=== PATIENT | male | born 1985 ===

== ENCOUNTER 2017-07-01 13:08 | Emergency (ER) | payer OTHER ==
[2017-07-01 13:14] VITALS: O2SAT 100
[2017-07-01] MEDS ORDERED: Sodium Chloride 0.9% 1,000 ML IV STA (13:43)
--- NOTE | 2017-07-01 13:51 | ED PDOC ---
HPI: Male Pain Time Seen by Provider: 07/01/17 13:39 Chief Complaint (Nursing): Male Genitourinary Chief Complaint (Provider): Male Genitourinary, Fever History Per: Patient History/Exam Limitations: no limitations Onset/Duration Of Symptoms: Days (x2) Current Symptoms Are (Timing): Still Present Additional Complaint(s): Chadd Bennett is a 32 year old male with no past medical history who presents to the ED complaining of dysuria x1 day. Patient states he had a fever of 102 yesterday and this morning urination was accompanied with a burning sensation. Also states he had left sided back pain yesterday which resolved sometime after taking Tylenol this morning. Denies coughing, abdominal pain, and vomiting. PMD: No PMD Past Medical History Reviewed: Historical Data, Nursing Documentation, Vital Signs Vital Signs: Last Vital Signs Temp 99.9 F H 07/01/17 13:12 Pulse 93 H 07/01/17 13:12 Resp 16 07/01/17 13:12 BP 131/81 07/01/17 13:12 Pulse Ox 100 07/01/17 13:12 - Family History Family History: States: Unknown Family Hx - Home Medications Home Medications: Ambulatory Orders Medication Instructions Recorded Ciprofloxacin HCl [Cipro] 500 mg PO BID #14 tablet 07/01/17 - Allergies Allergies/Adverse Reactions: Allergies Allergy/AdvReac Type Severity Reaction Status Date / Time acetaminophen Allergy RASH Verified 07/01/17 13:15 naproxen [From Aleve] Allergy RASH Verified 07/01/17 13:12 Review of Systems ROS Statement: Except As Marked, All Systems Reviewed And Found Negative Constitutional: Positive for: Fever (102, yesterday) Respiratory: Negative for: Cough Gastrointestinal: Negative for: Vomiting, Abdominal Pain Genitourinary Male: Positive for: Dysuria (Burning) Physical Exam - Reviewed Nursing Documentation Reviewed: Yes Vital Signs Reviewed: Yes - Physical Exam Appears: Positive for: Well, Non-toxic, No Acute Distress Head Exam: Positive for: ATRAUMATIC, NORMAL INSPECTION, NORMOCEPHALIC Skin: Positive for: Normal Color. Negative for: Rash Eye Exam: Positive for: Normal appearance Gastrointestinal/Abdominal: Positive for: Normal Exam, Bowel Sounds, Soft. Negative for: Tenderness, Guarding, Rebound Back: Positive for: Normal Inspection. Negative for: L CVA Tenderness, R CVA Tenderness, Vertebral Tenderness Neurologic/Psych: Positive for: Alert, Oriented - Laboratory Results Result Diagrams: 07/01/17 14:09 07/01/17 14:09 - ECG O2 Sat by Pulse Oximetry: 100 (RA) Pulse Ox Interpretation: Normal Medical Decision Making Medical Decision Making: Time: 13:42 Initial Impression: Febrile illness Plan: --CMP --ED urine dipstick --CBC w/ differential --Chlamydia/GC RNA, TMA --Sodium Chloride 0.9% 1,000 ml IV --Urine Culture --Influenza A B --Urinalysis --Reevaluation Time: 16:01 --Upon provider evaluation patient is medically stable, and requires no further treatment in the ED at this time. Patient will be discharged home with Rx for Cipro. Counseling was provided and all questions were answered regarding diagnosis and need for follow up with Urologist. There is agreement to discharge plan. Return if symptoms persist or worsen. Scribe Attestation: Documented by Ranulfo López, acting as a scribe for Reynaldo Iraheta PA-C Provider Scribe Attestation: All medical record entries made by the Scribe were at my direction and personally dictated by me. I have reviewed the chart and agree that the record accurately reflects my personal performance of the history, physical exam, medical decision making, and the department course for this patient. I have also personally directed, reviewed, and agree with the discharge instructions and disposition. Disposition - Clinical Impression Clinical Impression: Urinary tract infection - Patient ED Disposition Is Patient to be Admitted: No Counseled Patient/Family Regarding: Studies Performed, Diagnosis, Need For Followup, Rx Given - Disposition Referrals: Demetrio Winters Jr., MD [Staff Provider] - Disposition: Routine/Home Disposition Time: 16:01 Condition: FAIR Prescriptions: Ciprofloxacin HCl [Cipro] 500 mg PO BID #14 tablet Instructions: Urinary Tract Infection in Men (DC) Forms: [facility] (Australian), [facility] ED School/Work Excuse
[2017-07-01 14:17] LABS: BASO % 0.1 % (0.0-2.0); EOS % 0.1 % (0.0-4.0); HEMATOCRIT 46.2 % (35.0-51.0); LYMPH # 1.2 K/uL (1.0-4.3); LYMPH % 9.9 % (20.0-40.0); MEAN CELL VOLUME 87.6 fl (80.0-94.0); MEAN CORPUSCULAR HGB CONC 34.2 g/dL (33.0-37.0); MEAN PLATELET VOLUME 7.3 fl (7.2-11.7); MONO # 1.2 K/uL (0.0-0.8); MONO % 10.4 % (0.0-10.0); NEUT # 9.4 K/uL (1.8-7.0); NEUT % 79.5 % (50.0-75.0); NRBC % 0.5 % (0.0-0.0); PLATELET COUNT 191 K/uL (130-400); RED CELL DISTRIBUTION WIDTH 12.2 % (11.5-14.5); WHITE BLOOD COUNT 11.9 K/uL (4.8-10.8)
[2017-07-01 14:22] LABS: URINE BILIRUBIN NEGATIVE (NEGATIVE); URINE BLOOD SMALL (NEGATIVE); URINE COLOR YELLOW (YELLOW); URINE GLUCOSE (UA) 50 mg/dL (Normal); URINE KETONE 20 mg/dL (NEGATIVE); URINE LEUKOCYTE ESTERASE LARGE Leu/uL (Negative); URINE PROTEIN 30 mg/dL (NEGATIVE); URINE UROBILINOGEN 0.2-1.0 mg/dL (0.2-1.0); WBC URINE 43 /hpf (0-5)
[2017-07-01 14:27] LABS: ALB/GLOB RATIO 1.3 (1.0-2.1); ALKALINE PHOSPHATASE 73 U/L (38-126); ALT/SGPT 41 U/L (21-72); AST/SGOT 30 U/L (17-59); BLOOD UREA NITROGEN 12 mg/dl (9-20); CALCIUM 9.2 mg/dL (8.4-10.2); CARBON DIOXIDE 29 mmol/L (22-30); CHLORIDE 96 mmol/L (98-107); GFR AFRICAN-AMERICAN > 60; GLUCOSE,RANDOM 179 mg/dL (75-110); POTASSIUM 3.7 MMOL/L (3.6-5.0); SODIUM 137 mmol/l (132-148); TOTAL PROTEIN 8.5 G/DL (6.3-8.2)
[2017-07-01 14:35] LABS: RBC URINE 10 /hpf (0-3); URINE BACTERIA RARE (<OCC)
[2017-07-01 14:56] LABS: EOSINOPHIL 1 % (0-7); NEUTROPHIL 85 % (42-75); TOTAL CELLS COUNTED 100
[2017-07-01] MEDS ORDERED: cefTRIAXone (Rocephin) 1 gm Inj IVPB ONE (15:09)
[2017-07-01] MEDS ORDERED: cefTRIAXone IV 1 gm in Dextros 50 ML IVPB ONE ×2 (15:30→15:36)
[2017-07-01 16:12] VITALS: BP 121/72; PULSE 67; RESP 18; TEMP 99
== END 2017-07-01 16:14 | disposition home or self-care (01) ==
LOC: H.ER 13:08
DX: N39.0 Urinary tract infection, site not specified (principal)
CPT/HCPCS: 80053; 81003; 85025; 87086; 87491; 87591; 87804; 96374; 99282; J0696; J7040

== ENCOUNTER 2018-11-12 12:58 | Emergency (ER) | payer OTHER ==
[2018-11-12 13:08] VITALS: TEMP 97.1; O2SAT 100
--- NOTE | 2018-11-12 14:20 | ED PDOC ---
HPI: Abdomen Time Seen by Provider: 11/12/18 14:01 Chief Complaint (Nursing): Abdominal Pain Additional History Per: Patient Additional Complaint(s): 33 y/o male with PMH of diet control DM-II comes to the Er for 4 days hx of mid abdominal pain. Patient reports pain radiates to his back, comes and goes, 6/10, sharp in nature, gets worse with movement, not associated with any food. Denies any associated fever, nausea, vomiting, diarrhea or dysuria. PMH: DM-II PSH: Denies Allg:Tylenol and naproxen Sh: Social alcohol FH: heart diseaase Past Medical History Vital Signs: Last Vital Signs Temp 97.1 F L 11/12/18 13:06 Pulse 68 11/12/18 13:06 Resp 16 11/12/18 13:06 BP 105/70 11/12/18 13:06 Pulse Ox 100 11/12/18 13:06 - Family History Family History: States: Unknown Family Hx - Immunization History Hx Tetanus Toxoid Vaccination: No Hx Influenza Vaccination: No Hx Pneumococcal Vaccination: No - Home Medications Home Medications: Ambulatory Orders Medication Instructions Recorded Ciprofloxacin HCl [Cipro] 500 mg PO BID #14 tablet 07/01/17 Docusate Sodium [Colace] 100 mg PO DAILY #30 capsule 11/12/18 - Allergies Allergies/Adverse Reactions: Allergies Allergy/AdvReac Type Severity Reaction Status Date / Time acetaminophen Allergy RASH Verified 11/12/18 13:06 naproxen [From Aleve] Allergy RASH Verified 11/12/18 13:06 Review of Systems Constitutional: Negative for: Fever, Chills, Sweats Eyes: Negative for: Pain, Vision Change, Conjunctivae Inflammation ENT: Negative for: Ear Pain, Ear Discharge, Nose Pain Cardiovascular: Negative for: Chest Pain, Palpitations, Orthopnea, Paroxysmal Noc. Dyspnea Respiratory: Negative for: Cough, Shortness of Breath, Hemoptysis Gastrointestinal: Positive for: Abdominal Pain. Negative for: Nausea, Vomiting, Diarrhea, Constipation, Melena, Hematochezia, Hematemesis Genitourinary Male: Negative for: Dysuria, Frequency, Incontinence Musculoskeletal: Negative for: Neck Pain Skin: Negative for: Rash Neurological: Negative for: Weakness Psych: Negative for: Anxiety Physical Exam - Physical Exam Appears: Positive for: No Acute Distress Head Exam: Positive for: ATRAUMATIC, NORMAL INSPECTION, NORMOCEPHALIC Skin: Positive for: Normal Color Eye Exam: Positive for: Normal appearance, EOMI, PERRL ENT: Positive for: Normal ENT Inspection Neck: Positive for: Normal Cardiovascular/Chest: Positive for: Regular Rate, Rhythm Respiratory: Positive for: Normal Breath Sounds. Negative for: Decreased Breath Sounds, Accessory Muscle Use, Crackles, Wheezing Gastrointestinal/Abdominal: Positive for: Bowel Sounds (present ), Soft, Tenderness (RLQ). Negative for: Distended, Guarding, Rebound Back: Positive for: Normal Inspection. Negative for: L CVA Tenderness, R CVA Tenderness Extremity: Positive for: Normal ROM. Negative for: Tenderness, Pedal Edema Neurological/Psych: Positive for: Awake, Alert, Normal Tone, centrifugal spinner II-XII - Laboratory Results Result Diagrams: 11/12/18 15:00 11/12/18 14:53 - ECG O2 Sat by Pulse Oximetry: 100 - Progress ED Course And Treament: A/P: 33 y/o male with PMH of diet control DM-II comes to the Er for 4 days hx of mid abdominal pain. - CBC - CMP - UA - Maalox - Pepcid - Lidocaine 10mg PO - Reevaluation Case discussed with Dr. Vizcarra CBC/CMP and UA reviewed: no significant abnormality RE-evaluation: No improved pain Will get CT Medical Decision Making Medical Decision Making: Constipation/RLQ pain Disposition - Clinical Impression Clinical Impression: Abdominal pain, Constipation - Patient ED Disposition Is Patient to be Admitted: No - Disposition Referrals: [facility] [Provider Group] Disposition: Routine/Home Disposition Time: 17:56 Condition: STABLE Additional Instructions: F/u PMD in 2-3 days Return to ER if symptoms get worse of no improvement in 2-3 days Prescriptions: Docusate Sodium [Colace] 100 mg PO DAILY #30 capsule Instructions: Constipation in Adults, Colic (DC) Forms: [employer] (Estonian) Print Language: COMORAN
[2018-11-12] MEDS ORDERED: Alum-Mag Hydrox-Simethicone Susp (30 mL) PO ONE (14:24)
[2018-11-12 15:12] LABS: BASO % 0.8 % (0.0-2.0); EOS # 0.2 K/uL (0.0-0.7); EOS % 3.5 % (0.0-4.0); HEMOGLOBIN 15.3 g/dL (12.0-18.0); LYMPH % 20.4 % (20.0-40.0); MEAN CELL VOLUME 90.8 fl (80.0-94.0); MEAN CORPUSCULAR HEMOGLOBIN 30.2 pg (27.0-31.0); MEAN CORPUSCULAR HGB CONC 33.3 g/dL (33.0-37.0); MONO # 0.3 K/uL (0.0-0.8); MONO % 6.9 % (0.0-10.0); NEUT # 3.2 K/uL (1.8-7.0); NEUT % 68.4 % (50.0-75.0); NRBC % 0.1 % (0.0-0.0); RBC 5.06 Mil/uL (4.40-5.90); RED CELL DISTRIBUTION WIDTH 12.9 % (11.5-14.5); WHITE BLOOD COUNT 4.7 K/uL (4.8-10.8)
[2018-11-12 15:24] LABS: URINE BACTERIA RARE (<OCC); URINE BILIRUBIN NEGATIVE (NEGATIVE); URINE BLOOD NEGATIVE (NEGATIVE); URINE CLARITY SLIGHTY-CLOUDY (Clear); URINE COLOR YELLOW (YELLOW); URINE GLUCOSE (UA) NEG (NEGATIVE); URINE LEUKOCYTE ESTERASE NEG Leu/uL (Negative); URINE PROTEIN NEGATIVE (NEGATIVE); URINE UROBILINOGEN 0.2-1.0 mg/dL (0.2-1.0)
[2018-11-12 15:57] LABS: ALB/GLOB RATIO 1.2 (1.0-2.1); ALBUMIN 4.4 g/dL (3.5-5.0); ALT/SGPT 33 U/L (21-72); AST/SGOT 40 U/L (17-59); BLOOD UREA NITROGEN 15 mg/dl (9-20); CALCIUM 9.7 mg/dL (8.4-10.2); GFR NON-AFRICAN AMERICAN > 60; LIPASE 59 U/L (23-300)
[2018-11-12] MEDS ORDERED: Iohexol 300 100 ML IJ ONE (16:47)
[2018-11-12] MEDS ORDERED: Sodium Chloride 0.9% 50 ML IV ONE (16:48)
--- NOTE | 2018-11-12 17:22 | CT ---
Date of service: 11/12/2018 PROCEDURE: CT Abdomen and Pelvis with contrast HISTORY: RLQ pain COMPARISON: None available. TECHNIQUE: Contrast dose: 95 mL Omnipaque 300 IV Radiation dose: Total exam DLP = 250.15 mGy-cm. This CT exam was performed using one or more of the following dose reduction techniques: Automated exposure control, adjustment of the mA and/or kV according to patient size, and/or use of iterative reconstruction technique. FINDINGS: Examination limited by paucity of intra-abdominal/intrapelvic fat. LOWER THORAX: No visible consolidation, pleural effusion, or pneumothorax. LIVER: Unremarkable. GALLBLADDER AND BILE DUCTS: Unremarkable. PANCREAS: Unremarkable. SPLEEN: Unremarkable. ADRENALS: Unremarkable. KIDNEYS AND URETERS: The kidneys enhance symmetrically. No hydronephrosis or obstructing calculus identified. VASCULATURE: No aortic aneurysm. No atherosclerotic calcification or mural plaque present. BOWEL: Stomach is nondistended. Lack of oral contrast limits evaluation for bowel pathology. Bowel loops appear within normal limits of caliber without evidence of obstruction. Moderate constipation. APPENDIX: The appendix is not identified. No secondary signs of acute appendicitis. PERITONEUM: No significant free fluid. No definite free air. LYMPH NODES: No bulky adenopathy identified. BLADDER: Under distention of the urinary bladder. REPRODUCTIVE: Unremarkable. BONES: No acute osseous abnormality is detected. OTHER FINDINGS: None. IMPRESSION: The appendix is not identified. No secondary signs of acute appendicitis. Correlate clinically. Repeat study with oral contrast may be considered if indicated. Moderate constipation.
[2018-11-12 18:42] VITALS: BP 110/74; PULSE 70; RESP 18
== END 2018-11-12 18:26 | disposition home or self-care (01) ==
LOC: H.ER 12:58
DX: R10.31 Right lower quadrant pain (principal); K59.00 Constipation, unspecified; E11.9 Type 2 diabetes mellitus without complications; Z88.6 Allergy status to analgesic agent
CPT/HCPCS: 74177; 80053; 81003; 83690; 85025; 99283; Q9967